=== PATIENT | female | born 1995 | race Caucasian/White ===

== ENCOUNTER 2016-07-10 05:43 | Day surgery (SDC) | payer OTHER ==
[2016-07-10] VITALS (7 sets, daily range): BP systolic 109–116; BP diastolic 55–73; PULSE 61–78; RESP 12–20; O2SAT 99–100
[~2016-07-10] VITALS: Ht 172.7 cm; Wt 73.0 kg
[~2016-07-10 05:43] MED LIST: ACYC400T2 PO; CARB100C8 PO; HYDR50CA PO; KEN25CR TP; LITH300T2 PO; MECL-114 PO; ONDA4TAB6 PO; SCOP1PAT TD; VENL37.57 PO
[2016-07-10] MEDS ORDERED: Ondansetron 2 mg/mL 2 mL Inj ONE (05:44)
[2016-07-10] MEDS ORDERED: fentaNYL-PF 50 mCg/mL 2 mL Inj ONE (05:44)
[2016-07-10] MEDS ORDERED: Dexamethasone 4 mg/mL Inj ONE (05:44)
[2016-07-10] MEDS ORDERED: Propofol 10,000 mCg/mL 20 mL Inj ONE (05:44)
[2016-07-10] MEDS: Lactated Ringer's 1,000 ML IV SCH ×2 (05:59→07:24)
--- NOTE | 2016-07-10 07:09 | PCM.HPANE ---
Patient Data Surgeon Admitting Provider: Attending Provider:Raúl Caraballo MD Primary Care Physician:Sosa Muñoz MD Other Provider:[facility] Anesthesia Reason for Visit Left Breast Lump Ht/WT & BMI Height (Feet): 5 Height (Inches): 8 Weight (Kilograms): 73 Body Mass Index 24.00 Allergies Coded Allergies: No Known Allergies (Unverified , 07/08/16) Past Anesthesia History Anesthesia History: Denies:: Anesthesia Reactions, Malignant Hyperthermia Diabetes History Hx Diabetes?: No MRSA MRSA: No Medications Home Meds Incl Beta She: No Reported Medications Hydroxyzine Pamoate (Vistaril)50 Mg Nialhwq24 Mg PO HS PRN For Insomnia Ref 0 MAY ALSO TAKE PRN DURING DAYTIME FOR ANXIETY 07/08/16 Meclizine (Bonine)25 Mg Tab.chew25 Mg PO QID PRN PRN 07/08/16 Carbamazepine 100 Mg Eojjayz542 Mg PO DAILY 07/08/16 Acyclovir 400 Mg Ymosbm310 Mg PO BID Ref 0 07/08/16 [place] Carbonate 300 Mg Fonbtk186 Mg PO DAILY 07/08/16 Scopolamine (Transderm-Scop)1 Each Patch.td721 Each TD PRN 07/08/16 Ondansetron (Zofran)4 Mg Tablet4 Mg PO Q12H PRN For Nausea 07/08/16 Triamcinolone Acet (Triamcinolone Acetonide Cream)1 Applic/0.25 Gm Cr1 Applic TP BID PRN PRN #60 GM Ref 0 0.1% 07/08/16 Venlafaxine 37.5 Mg Ikohqm37.5 Mg PO DAILY Ref 0 07/08/16 Venlafaxine 37.5 Mg Nujezf93.75 Mg PO BIDWM Ref 0 07/08/16 History History of ENT Problems?: No Hx of Heart Problems?: No Cardiovascular History: Denies:: Heart Murmur Hypertension Hx of Respiratory Problem?: No Respiratory History: Denies:: Use of C-PAP Machine Hx Neurologic Problems?: Yes Neurological History: Positive for:: Dizziness (HX BPV) Other Neurological Pertinent: HX CONCUSSION (CT WNL) 2010 Hx of GI Problems?: No Hx of Problems?: No Female Hx: Positive for:: Problems with Breasts? (LT BREAST LUMP=CURRENT PROBLEM ) Denies:: Currently Pelvic Inflammatory (HX GENITAL HERPES) Skin History: Positive for:: History Skin Disorders? (HX RASHES,DIHIDROTIC ECZEMA) Denies:: Pressure Ulcers Hx Musculoskeletal Problems?: No Hx of Psycho/Social Problems?: Yes Psycho Social History: Positive for:: Anxiety Bipolar Disorder Hx Surgeries?: No Hx Any Other Health Problems?: Yes Other History: Denies:: Cancer Endocrine Disease Hospitalization Thyroid Disease History Blood Transfusions: Denies:: Blood Transfusions Hx Diabetes: No Hx Alcohol Use: YesAlcoholic Drinks Per Day: 1/DAYHave You Smoked inLast 12 mo : No Stop/Bang S-Snoring: Do You Snore Loudly: No T-Tired: feel tired, fatigued: Yes O-Obsered: Observed not breath: No P-Blood Pressure: treated: No B- Body Mass Index > 35 kg/m2: No A- Age over 50: No N- Neck Large Circumference: No G- Gender Male: No HAVEN Total Score: 1 Risk Assessment Category Category 1A: Patient has history of documented sleep apnea, and HAS NOT received any narcotic, sedative or anesthesia administration during this stay. Category 1B: Patient has history of documented sleep apnea, and HAS received any narcotic , sedative or anesthesia administration during this stay Category 2: Patient has SUSPECTED Obstructive Sleep Apnea, and HAS received any narcotic , sedative or anesthesia administration during this stay. Category 3: Patient has SUSPECTED Obstructive Sleep Apnea and HAS NOT received narcotic, sedative or anesthesia administration during this stay. Category 4: Outpatient in Procedural Areas with known sleep apnea or who screen positive for High Risk via the STOP/BANG questionnaire. Exam Exam Vital Signs Vital Signs Date Time Temp Pulse Resp B/P Pulse Ox O2 Delivery O2 Flow Rate FiO2 07/10/16 06:08 36 72 20 112/61 100 Room Air General Appearance: Alert, Oriented X3, Cooperative, No Acute Distress HEENT/AIRWAY: MP 2 Lungs: Clear to Auscultation, Normal Air Movement Heart: Exam Unremarkable, Regular Rate/Rhythm, No Murmurs/Rubs/Gallops Meds/Labs/Diagnostics Admission Meds Current Medications Lactated Ringer's (Lr) 1,000 ml @ 120 mls/hr Q8H20M IV Last administered on t 05:59; Start 07/10/16 at 05:00; Stop 07/10/16 at 13:19 Plan Impression Patient chart reviewed, patient interviewed and anesthestic plan with risks, benefits, and alternatives discussed, and informed consent obtained. NPO Status: 07/10/16 WATER AT 0430 ASA Physical Status: ASA1 Normal Healthy Anesthetic Plan: GA Bene/Risks/Altern/Consents: Yes HP Complete Prior to Induction: Yes Lm Chapa MD Jul 10, 2016 07:09
[2016-07-10] MEDS ORDERED: Lactated Ringer's 500 ML IV PRN (07:23)
[2016-07-10] MEDS ORDERED: Lactated Ringer's 1,000 ML IV SCH (07:23)
[2016-07-10] MEDS ORDERED: Phenylephrine 10,000 mCg/mL Inj IVPUSH PRN (07:25)
[2016-07-10] MEDS ORDERED: MetoCLOpramide 5 mg/mL 2 mL Inj IVPUSH PRN (07:25)
[2016-07-10] MEDS ORDERED: fentaNYL-PF 50 mCg/mL 2 mL Inj IVPUSH PRN (07:25)
[2016-07-10] MEDS ORDERED: Ondansetron 2 mg/mL 2 mL Inj IVPUSH PRN (07:25)
[2016-07-10] MEDS ORDERED: Dexamethasone 4 mg/mL Inj IVPUSH PRN (07:25)
[2016-07-10] MEDS ORDERED: EPHEDrine Sulfate 50 mg/mL Inj IVPUSH PRN (07:25)
[2016-07-10] MEDS ORDERED: HYDROmorphone 1 mg/mL Inj IVPUSH PRN (07:25)
[2016-07-10] MEDS ORDERED: Bupivacaine-MPF 0.25% 30 mL Inj INFILTRATE ONE (07:36)
[2016-07-10] MEDS ORDERED: oxyCODONE-Acetamin 5-325 mg Tablet PO PRN (08:10)
--- NOTE | 2016-07-10 08:30 | OP ---
[address] [address] OPERATIVE REPORT PATIENT: ANNY MARIO : 1995 MR#: [id number] ADMIT: 07/10/2016 JOB ID: [id number] DATE OF SURGERY: 07/10/2016 ANESTHESIA: General. PREOPERATIVE DIAGNOSIS(ES): Left breast palpable mass. POSTOPERATIVE DIAGNOSIS(ES): Left breast palpable mass. OPERATIVE PROCEDURES: Excisional biopsy of left breast palpable mass. SURGEON: Dr. Raúl Caraballo. DATA SCIENCES DIRECTOR: Ted Hutson PA-C (the digital assistant was required for the safe and timely completion of the case) and KAREN Cole. COMPLICATIONS: None. ESTIMATED BLOOD LOSS: Minimal. CONDITION: Satisfactory. SPECIMEN: Left breast palpable mass (double stitch walker deep, long stitch walker lateral). FINDINGS: There was a 4 x 3 x 1.7 cm firm rubbery mass in the left inferior aspect of the breast. This was excised. INDICATION/SIGNIFICANT HISTORY: The patient is a 19-year-old otherwise healthy female who recently noticed a new left breast lump. This was evaluated with ultrasound which was suggestive of a benign fibroadenoma. She was referred to me and I recommended ultrasound-guided biopsy. However, she felt quite strongly that she wanted it removed and, therefore, decision was made to proceed with excisional biopsy. OPERATIVE TECHNIQUE: The patient was taken into the operating room and placed in supine position. General anesthesia was administered. The left breast was prepped and draped in a standard surgical fashion. A procedural pause was performed. I began with a radial incision over the palpable lump at the outer inferior aspect of the left breast. Dissection was carried down through the skin and subcutaneous tissue. The palpable lump easily encountered and circumferentially dissected free. This was somewhat contiguous with the underlying dense fibrous tissue deeply and so was transected off that tissue using electrocautery. The specimen was then oriented with sutures. The surgical bed was inspected and made hemostatic. The breast parenchyma was reapproximated using 3-0 Vicryl. Skin was closed using 4-0 Monocryl. Dermabond was applied. The entire procedure was well tolerated.
--- NOTE | 2016-07-10 09:15 | PCM.ANEP1 ---
Post Anesthesia Phase 1 PACU Phase 1 Assessment Vital Signs Vital Signs Date Time Temp Pulse Resp B/P Pulse Ox O2 Delivery O2 Flow Rate FiO2 07/10/16 08:32 72 18 116/73 100 Room Air 07/10/16 08:25 61 16 109/63 99 Room Air 07/10/16 08:20 37.3 78 18 111/61 99 Room Air 07/10/16 08:15 64 14 113/55 99 Room Air 07/10/16 08:10 69 12 115/61 100 Room Air 07/10/16 08:05 36.9 61 14 112/68 100 Room Air 07/10/16 06:08 36 72 20 112/61 100 Room Air Anesthetic Administered: GA Level of Alertness: Sleepy, easy to arouse ALONZO's with Equal Strength: Yes Pain: No Nausea or Vomiting: No Oxygen Delivery: Room Air Lungs: Clear to Auscultation, Normal Air Movement Dermatome Level: Full Sensation Lm Chapa MD Jul 10, 2016 09:15
--- NOTE | 2016-07-10 09:27 | PCM.ANEP2 ---
Post Anesthesia Evaluation ASA/CMS Post Anesthesia VS in Patient's Normal Range?: Yes Resp Stable; Airway Patent?: Yes CV Function & Hydration Stable: Yes Mental Status Recovered?: Yes Pain control Satisfactory?: Yes N/V Control Satisfactory?: Yes Lm Chapa MD Jul 10, 2016 09:26
--- NOTE | 2016-07-14 15:03 | PATH ---
SURGICAL PATHOLOGY Attending Physician:Raúl Caraballo MD CASE STATUS: Signed Out PATIENT NAME: ANNY MARIO PID: [id number] : 1995 DATE COLLECTED:07/10/2016 17:14 SPECIMEN: Breast Mass, Excision CLINICAL HISTORY: LEFT BREAST LUMP 1). LEFT BREAST PALPABLE MASS -DOUBLE STITCH: DEEP -LONG STITCH: LATERAL FINAL DIAGNOSIS: 1.LEFT BREAST MASS, LUMPECTOMY: CELLULAR FIBROADENOMA. NO EVIDENCE OF MALIGNANCY OR CYTOLOGIC ATYPIA. SURGICAL MARGINS NEGATIVE. ICD10 CODE D24.2 GROSS DESCRIPTION: The specimen is received in formalin, labeled with the patient's name, sublabeled as left breast palpable mass, double: deep, long: lateral and consists of a piece of breast tissue (1.8 cm AP, 3.8 cm SI, 2.5 cm ML) with no overlying skin. The specimen is oriented with 2 black sutures (double-deep, long-lateral). No localization wire is present. The specimen is serially sectioned SI into 12 slices with the superior and inferior resection margins slices #1 and #12 respectively. The breast tissue is fibrofatty and contains a moffett-yellow solid rubbery semi-translucent well-circumscribed mass (2.5 x 1.9 x 1.5 cm) within slices #6-#11, which correlates with the operative report. The mass is less than 0.1 cm from the anterior, less than 0.1 cm from the posterior, 1.1 cm from the superior, 0.2 cm from the inferior, 1.0 cm from the medial, and 0.1 cm from the lateral resection margins. No other nodules, masses or lesions are identified. Ink code: purple-anterior; yellow-posterior; black-superior; orange-inferior; green-medial; blue-lateral. Section code: (A) superior resection margin, perpendicularly sectioned; (B) slice #2; (C) slice #3; (D) slice #4; (E) slice #5; (F) slice #6; (G) slice #7; (H) slice #8; (I) slice #9; (J) slice #10; (K) slice #11; (L) inferior resection margin, perpendicularly sectioned. Specimen entirely submitted. 07/11/16 LUIS ENRIQUE MICRO DESCRIPTION: See diagnosis. ICD-9 CODES: CPT CODES: 1: 95248 Electronically Signed Out Pato Galindo MD [facility]ology [facility] [address], [place] [address] Technical component performed at [facility], [facility] [address], [place], [address]
== END 2016-07-10 23:59 | disposition home or self-care (01) ==
LOC: SAS 05:43
PROVIDERS: ATTEND General Practice
DX: D24.2 Benign neoplasm of left breast (principal); F41.9 Anxiety disorder, unspecified; F31.9 Bipolar disorder, unspecified
CPT/HCPCS: 19120; J1100; J2405; J3010; J7120